=== PATIENT | female | born 1950 | race Caucasian/White ===

== ENCOUNTER 2023-01-22 12:20 | Outpatient (CLI) | payer MEDICARE, BC, SELFPAY ==
[2023-01-22] MEDS: BRIMONIDINE TARTRATE 0.2% OPHTH 1 DROP EYE-RIGHT ×2 (12:55→14:00)
[2023-01-22] MEDS: TETRACAINE 0.5% OPHTH 1 DROP EYE-RIGHT ×3 (12:55→13:55)
[2023-01-22 13:04] VITALS: BP 154/82; PULSE 80; RESP 16; O2SAT 97
--- NOTE | 2023-01-22 14:29 | P.PCN_ITS ---
Procedure Note Date Seen: 01/22/23 Will [facility] bill your pro fee for this procedure?: No Procedure Description: insert EA insert right laser insert right UE leg insert right capsule NAME OF PROCEDURE YAG laser capsulotomy, right eye. PREOP DIAGNOSIS Obscuring lens capsule, right eye. POSTOP DIAGNOSIS Obscuring lens capsule, right eye, repaired. INDICATIONS FOR PROCEDURE This patient has experienced a painless progressive loss of vision in their right eye. Ryan Warren MD was unable to improve this patients corrective lenses that would give them clear vision. For that reason, this patient elected to proceed with laser capsulotomy on the right eye. I explained the risks, benefits, alternative treatments to them including possible need for exchanging the implant. The patient understands, accepts, and elects to proceed with surgical repair. PROCEDURE After the right pupil was dilated with 1% Mydriacyl, topical anesthetic was applied. The patient was positioned for the YAG laser where after placing a laser lens, a standard cruciform capsulotomy was performed utilizing 47 pulses at 2.4 mJ. The patient was then discharged in good condition, having tolerated the procedure well. Condition on discharge was satisfactory.
== END 2023-01-22 12:21 | disposition home or self-care (01) ==
LOC: EYE PRC 12:23
PROVIDERS: PCP Family Medicine; Visit Provider Ophthalmology
DX: H26.9 Unspecified cataract (principal)
CPT/HCPCS: 66821; A9270